=== PATIENT | male | born 1985 | race Caucasian/White ===

== ENCOUNTER 2017-01-22 14:43 | Emergency (ER) | payer MEDICAID, OTHER ==
[~2017-01-22] VITALS: Ht 175.3 cm; Wt 64.0 kg
[2017-01-22 14:46] VITALS: BP 162/68; PULSE 70; RESP 16; TEMP 97.7; O2SAT 100
[2017-01-22] MEDS ORDERED: IBUP1TAB7 PO (16:29)
[2017-01-22] MEDS ORDERED: CLIN300C5 PO (16:29)
--- NOTE | 2017-01-22 16:29 | PD ---
HPI . Toothache Chief Complaint: Oral / Dental Pain or Problem Time Seen by Provider: 16:09 Travel History International Travel<30 days: No Contact w/Intl Traveler<30days: No Traveled to known affect area: No History of Present Illness HPI Patient presents with the acute onset of a toothache. It started today. It is his right lower jaw. PFSH Past Medical History Medical History: Denies Significant Hx Diminished Hearing: No Tetanus Vaccination: < 5 Years Influenza Vaccination: No Social History Alcohol Use: No Tobacco Use: No Substance Use: No Allergies-Medications (Allergen,Severity, Reaction): Coded Allergies: latex (Verified Allergy, Severe, Anaphylaxis, 01/22/17) Reported Meds & Prescriptions Reported Meds & Active Scripts Active No Active Prescriptions or Reported Medications Review of Systems Except as stated in HPI: all other systems reviewed are Neg General / Constitutional: No: Fever, Chills HENT: Positive: Dental Difficulties, Other Physical Exam Narrative GENERAL: Awake and alert and in no acute distress. SKIN: Warm and dry. No redness or warmth of the skin of his jaw. HEAD: Normocephalic/atraumatic. No facial swelling. ENT: Very poor dental hygiene. It is difficult to determine exactly which tooth may be involved because most of them are decayed. However, I think that it is teeth #30 and 29. EYES: Pupils are equal. Extraocular movements are intact. NECK: Normal range of motion. No cervical lymphadenopathy. CARDIOVASCULAR: Regular rate and rhythm. RESPIRATORY: Nonlabored respirations. MUSCULOSKELETAL: Atraumatic. NEUROLOGICAL: Nonfocal. PSYCHIATRIC: Appropriate mood and affect. Data Data Last Documented VS Vital Signs Date Time Temp Pulse Resp B/P (MAP) Pulse Ox O2 Delivery O2 Flow Rate FiO2 01/22/17 14:46 97.7 70 16 162/68 (99) 100 MDM Medical Decision Making Medical Screen Exam Complete: Yes Emergency Medical Condition: Yes Differential Diagnosis Differential diagnosis of a toothache includes but is not limited to dental caries, dental abscess, gingivitis, drug-seeking behavior. Narrative Course Patient presents with dental pain. He has very poor dental hygiene. I will treat him with clindamycin and Motrin and have him follow up with dentist. Diagnosis Primary Impression: Toothache Patient Instructions: General Instructions, Toothache (ED) Med/Other Pt SpecificInfo: Prescription(s) given Scripts Ibuprofen (Ibuprofen) 800 Mg Tab 800 MG PO Q8H Y for Pain/Inflammation, #60 TAB 0 Refills Prov: Gena Ferguson MD 01/22/17 Clindamycin (Clindamycin) 300 Mg Cap 300 MG PO TID for Infection, #21 CAP 0 Refills Prov: Gena Ferguson MD 01/22/17 Disposition: 01 DISCHARGE HOME Condition: Stable Gena Ferguson MD Jan 22, 2017 16:29
== END 2017-01-22 16:38 | disposition home or self-care (01) ==
LOC: PHED 14:43
DX: K08.89 Other specified disorders of teeth and supporting structures (principal)
CPT/HCPCS: 99283